=== PATIENT | male | born 1990 | race Caucasian/White ===

== ENCOUNTER 2018-01-12 09:16 | Emergency (ER) | payer MEDICAID ==
[~2018-01-12] VITALS: Ht 177.8 cm; Wt 126.1 kg
[~2018-01-12 09:16] MED LIST: ALBU90OI INH; AMOX500 PO; Adipex-P37.5 M1 PO; CIPDEXSU OT; CLIN300 PO; CRUTCH4 USE; DIPATR PO; FAMO40 PO; HYDACE5 PO; IBUP400 PO; IBUP600 PO; IBUP800 PO; KETO10 PO; NAPR500 PO; ONDA4 PO; OXYACE5T PO; PRED10 PO; RXCLIN PO; RXCODGUASY PO; SULTRIDS PO; TRAM50 PO
[2018-01-12 09:55] LABS: BASOPHILS ABSOLUTE AUTO 0.03 K/mm3 (0.00-0.23); BASOPHILS PERCENT AUTO 0 % (0-2); EOSINOPHILS ABSOLUTE AUTO 0.22 K/mm3 (0.00-0.68); EOSINOPHILS PERCENT AUTO 3 % (0-6); Hemoglobin 15.5 g/dL (13.5-17.5); IMMATURE GRAN ABSOLUTE AUTO 0.03 K/mm3 (0.00-0.10); IMMATURE GRAN PERCENT AUTO 0 % (0-1); LYMPHOCYTES ABSOLUTE AUTO 2.69 K/mm3 (0.84-5.20); LYMPHOCYTES PERCENT AUTO 32 % (21-46); MONOCYTES ABSOLUTE AUTO 0.74 K/mm3 (0.16-1.47); MONOCYTES PERCENT AUTO 9 % (4-13); Mean Corpuscular HGB 27.8 pg (26.0-34.0); Mean Corpuscular HGB Conc 33.7 g/dL (31.5-36.5); Mean Corpuscular Volume 82 fL (80-100); Mean Platelet Volume 11.3 fL (9.1-12.4); NEUTROPHILS ABSOLUTE AUTO 4.84 K/mm3 (1.96-9.15); NEUTROPHILS PERCENT AUTO 56 % (41-73); Platelet Count 251 K/mm3 (150-400); RDW Coefficient Variation 12.7 % (11.7-14.2); RDW Standard Deviation 38.3 fL (35.1-46.3); Red Blood Cell Count 5.58 M/mm3 (4.30-5.90); White Blood Cell Count 8.55 K/mm3 (4.00-11.30)
[2018-01-12] MEDS ORDERED: HYDCHL25 PO (10:05)
[2018-01-12 10:14] LABS: Alanine Aminotransfer (ALT/SGP 37 U/L (12-78); Albumin, Blood 3.9 g/dL (3.4-5.0); Albumin/Globulin Ratio 1.2 (0.8-1.8); Alk Phos 68 U/L (50-136); Anion Gap 7 mmol/L (6-16); Aspartate Aminotrans (AST/SGOT 18 U/L (12-37); Bilirubin, Total 0.4 mg/dL (0.1-1.0); Blood Urea Nitrogen 15 mg/dL (8-24); Bun/Creatinine Ratio 18.3 (12.0-20.0); CO2, Blood 28 mmol/L (21-32); Calcium, Blood 8.8 mg/dL (8.5-10.1); Chloride, Blood 105 mmol/L (98-108); Creatinine, Blood 0.82 mg/dL (0.60-1.20); Globulin, Blood 3.3 g/dL (2.2-4.0); Glomerular Filtration Rate >60 (60-); Glucose, Blood 83 mg/dL (70-99); Potassium, Blood 3.7 mmol/L (3.5-5.5); Sodium, Blood 140 mmol/L (136-145); Total Protein, Blood 7.2 g/dL (6.4-8.2); Troponin I <0.015 ng/mL (0.000-0.040)
== END 2018-01-12 11:54 | disposition home or self-care (01) ==
LOC: ER 09:16
PROVIDERS: Emergency Medicine
DX: R07.9 Chest pain, unspecified (principal); I10 Essential (primary) hypertension; Z91.030 Bee allergy status; Z88.5 Allergy status to narcotic agent
CPT/HCPCS: 36415; 71046; 80053; 84484; 85025; 93005; 93010; 99284

== ENCOUNTER 2019-04-08 15:49 | Emergency (ER) | payer OTHER ==
[~2019-04-08] VITALS: Ht 177.8 cm; Wt 139.7 kg
[~2019-04-08 15:49] MED LIST changes: +BUPR100 PO; +CRUTCH4 XX; +ESCI10 PO; +HYDCHL25 PO; +LOSA50 PO; +Percocet 5-3251 EACH PO
== END 2019-04-08 17:21 | disposition home or self-care (01) ==
LOC: ER 15:49
DX: S00.83XA Contusion of other part of head, initial encounter (principal); S60.221A Contusion of right hand, initial encounter; S20.311A Abrasion of right front wall of thorax, initial encounter; Y04.8XXA Assault by other bodily force, initial encounter; Z88.5 Allergy status to narcotic agent; Z88.0 Allergy status to penicillin; Z88.8 Allergy status to other drugs, medicaments and biological substances; Z91.013 Allergy to seafood; Z79.899 Other long term (current) drug therapy; I10 Essential (primary) hypertension; Z87.891 Personal history of nicotine dependence
CPT/HCPCS: 70450; 73130; 99284-25

== ENCOUNTER → 2021-02-02 | Outpatient (CLI) | payer OTHER ==
[2021-02-02 17:14] LABS: U Amphetamine Screen Not Detected; U Barbituate Screen Not Detected; U Benzodiazapine Screen Not Detected; U Buprenorphine Screen Not Detected; U Cannabinoids Screen DETECTED; U Cocaine Screen Not Detected; U Methadone Screen Not Detected; U Methamphetamine Screen Not Detected; U Opiates Screen Not Detected; U Oxycodone Screen Not Detected; U Phencyclidine Screen Not Detected; U Propoxyphene Screen Not Detected
== END | disposition home or self-care (01) ==
LOC: LAB 14:10 → LAB SHORT 14:10
PROVIDERS: Nurse Practitioner Family
DX: Z51.81 Encounter for therapeutic drug level monitoring (principal); Z79.899 Other long term (current) drug therapy

== ENCOUNTER → 2021-03-24 | Outpatient (CLI) | payer OTHER | END | disposition home or self-care (01) | LOC: LAB SHORT 15:36 → LAB 15:36 | DX: I10 Essential (primary) hypertension (principal) | CPT/HCPCS: 82043 ==

== ENCOUNTER 2021-11-25 16:50 | Emergency (ER) | payer OTHER ==
[~2021-11-25] VITALS: Ht 180.3 cm; Wt 110.7 kg
== END 2021-11-25 18:00 | disposition home or self-care (01) ==
LOC: ER 16:50
DX: S61.210A Laceration without foreign body of right index finger without damage to nail, initial encounter (principal); W26.0XXA Contact with knife, initial encounter; I10 Essential (primary) hypertension; Z88.5 Allergy status to narcotic agent; Z88.0 Allergy status to penicillin; Z88.8 Allergy status to other drugs, medicaments and biological substances; Z91.038 Other insect allergy status; Z79.899 Other long term (current) drug therapy; Z87.891 Personal history of nicotine dependence; Z23 Encounter for immunization
CPT/HCPCS: 90714

== ENCOUNTER 2022-12-08 10:28 | Day surgery (SDC) | payer OTHER ==
[~2022-12-08] VITALS: Ht 180.3 cm; Wt 136.3 kg
--- NOTE | 2022-12-08 11:54 | NUR ---
12/08/22 1154 Carmina Beth PATIENT STATES HE WILL DRIVE HIMSELF HOME, PATIENT EDUCATED THAT IF HE IS GOING TO DRIVE HIMSELF HOME HE WILL ONLY RECEIVE LOCAL INJECTION TODAY, NO VERSED OR FENTANYL. PATIENT VERBALIZES UNDERSTANDING. OR NURSE AND CHARGE NURSE ALERTED.
[2022-12-08 12:23] VITALS: BP 133/77
--- NOTE | 2022-12-08 12:32 | NUR ---
12/08/22 1232 CLARK ADORNO PT DID NOT HAVE ANY SEDATION- NO VERSED. PT WILL BE DRIVING HIMSELF HOME.
== END 2022-12-08 12:45 | disposition home or self-care (01) ==
LOC: ORSCSDS 10:28
PROVIDERS: Orthopaedic Surgery
PROC: 01N54ZZ Release Median Nerve, Percutaneous Endoscopic Approach (ICD-10-PCS; principal; 2022-12-08 12:00)
DX: G56.02 Carpal tunnel syndrome, left upper limb (principal); F41.9 Anxiety disorder, unspecified; G47.30 Sleep apnea, unspecified; Z87.891 Personal history of nicotine dependence; Z79.899 Other long term (current) drug therapy
CPT/HCPCS: J2250; J7120

== ENCOUNTER → 2023-07-26 | Outpatient (CLI) | payer OTHER ==
[~2023-07-26] MED LIST changes: +HYDR1TAB94 PO; +IBUP200 PO; +Ibuprofen600 MG PO; +MONDOXYNE NL100 MG PO; +OFLOXACIN5 M9 OT
== END | disposition home or self-care (01) ==
LOC: LAB 13:00 → LAB SHORT 13:00
DX: H60.61 Unspecified chronic otitis externa, right ear (principal)
CPT/HCPCS: 87070; 87077; 87186; 87205

== ENCOUNTER 2023-07-29 00:23 | Emergency (ER) | payer OTHER ==
[~2023-07-29] VITALS: Ht 180.3 cm; Wt 142.4 kg
[~2023-07-29 00:23] MED LIST changes: -HYDR1TAB94 PO; -IBUP200 PO; -Ibuprofen600 MG PO; -MONDOXYNE NL100 MG PO; -OFLOXACIN5 M9 OT
[2023-07-29] MEDS ORDERED: OFLOXACIN5 M9 OT (03:54)
[2023-07-29] MEDS ORDERED: CLIN300 PO (03:54)
[2023-07-29] MEDS ORDERED: MONDOXYNE NL100 MG PO (03:55)
[2023-07-29] MEDS ORDERED: IBUP200 PO (03:56)
[2023-07-29] MEDS ORDERED: Ibuprofen600 MG PO (04:59)
[2023-07-29] MEDS ORDERED: HYDR1TAB94 PO (04:59)
[2023-07-29 05:40] VITALS: BP 155/106
== END 2023-07-29 05:41 | disposition home or self-care (01) ==
LOC: ER 00:23
DX: H66.91 Otitis media, unspecified, right ear (principal); H61.001 Unspecified perichondritis of right external ear; I10 Essential (primary) hypertension; Z87.891 Personal history of nicotine dependence; Z79.899 Other long term (current) drug therapy; Z88.0 Allergy status to penicillin; Z88.5 Allergy status to narcotic agent; Z88.8 Allergy status to other drugs, medicaments and biological substances; Z91.030 Bee allergy status
CPT/HCPCS: 99282; A9270